=== PATIENT | female | born 1965 | race Caucasian/White ===

== ENCOUNTER 2018-01-14 07:13 | Day surgery (SDC) | payer OTHER, SELFPAY ==
[2018-01-14] VITALS (7 sets, daily range): BP systolic 94–114; BP diastolic 60–73; PULSE 50–69; RESP 14–16; TEMP 36–36.3; O2SAT 97–100; BMI 29.0
[2018-01-14 07:57] LABS: Internal QC Validated? YES +Cl - CLEAR BKGD; Pregnancy, Urine Negative Negative
--- NOTE | 2018-01-14 08:20 | RAD_ITS ---
STUDY: X-RAY - RIGHT FOOT CLINICAL: Female, 52 years old. Status post ORIF TECHNIQUE: 3 view(s) of the foot. COMPARISON: None. FINDINGS: Normal talus, calcaneus, and tarsal bones. Normal visualized subtalar, talonavicular, calcaneocuboid, tarsal and tarsometatarsal articulations. There is a fifth metatarsal fracture with screw. Normal metatarsophalangeal joint of the great toe. Normal tibial and fibular sesamoid bones. Normal interphalangeal joint of the great toe. Normal phalanges of the great toe. Normal second through fifth metatarsophalangeal joints. Normal interphalangeal joints and phalanges of the lesser toes. The soft tissue structures are unremarkable. RAD/Foot min 3 Views IMPRESSION: Status post ORIF of fifth metatarsal fracture. Electronically Signed: Lopez Enriquez MD at 14:04 EST , Service support ,
[2018-01-14] MEDS: Cefazolin 2 GM in 0.9% Normal Saline 100 ML IV (08:42)
[2018-01-14 08:54] LABS: Vitamin D,25 Hydroxy 41.4 ng/mL (29.95-100.01)
[2018-01-14] MEDS: Heparin 10,000 UNITS/10 ML Vial 10000 UNITS (09:00)
--- NOTE | 2018-01-14 09:35 | DCINST_ITS ---
Discharge Diet: Light diet - advance as tolerated Discharge Activity: May Not Drive Weight Bearing Status: No weight bearing - No weightbearing right foot Keep extremity elevated above heart level: Right Leg - Keep right foot elevated for at least 50 minutes of every hour Call your doctor if your incision/area has: Continuous Slow Oozing, Sudden Increased Bleeding, Foul Smelling Discharge Call your doctor if you observe: Fever of 101 or Higher, Coldness, Increased Pain, Shortness of breath, Chest pain, Increased palpitations (irregular heartbeat), Calf discomfort, Uncontrolled pain Cleanse incision/area with: Do not get Incision Wet, Keep Dressing Clean & Dry Allergies/Adverse Reactions: Allergies No Known Allergies Allergy (Verified 01/07/18 15:09) Medications to take at Discharge Fluvoxamine Maleate [Luvox] 50 mg PO QHS 08/24/14 Levothyroxine [Synthroid] 50 mcg PO DAILY 08/24/14 Spironolactone [Aldactone] 50 mg PO DAILY 08/24/14 Ergocalciferol [Vitamin D] 2,000 unit PO DAILY 11/05/17 Metaxalone [Skelaxin] 800 mg PO BID PRN PRN 11/05/17 Omeprazole Magnesium [Prilosec Otc] 20 mg PO DAILY 11/05/17 Oxycodone HCl/Acetaminophen [Percocet 5/325] 1 - 2 tab PO Q4H PRN PRN 3 Days # 30 tab 01/14/18 The following prescriptions were given: Oxycodone HCl/Acetaminophen [Percocet 5/325] 1 - 2 tab PO Q4H PRN PRN 3 Days # 30 tab PRN Reason: Pain Primary Care Physician: Arline Melton [Primary Care Provider] - Please Follow Up With: Aleksandar Pisano DPM When: within 1 week or sooner if needed
[2018-01-14] MEDS: Bupivacaine 0.25% 30 ML Vial (09:37)
--- NOTE | 2018-01-14 09:37 | PCM.OPRPT ---
Report of Operation Date of Procedure: 01/14/18 Pre-Operative Diagnosis: 5th metatarsal fracture, right foot Post-Operative Diagnosis: Same Surgery/Procedure Performed:: Open reduction internal fixation 5th metatarsal fracture with bone marrow aspiration and injection of ignite graft brewery technician: Yes - Dr. Eleazar Back Type of Anesthesia:: Local MAC Specimen's removed: None Estimated Blood Loss (mL): 1mL Description of Procedure: Indications: This is a 52 year old female with right 5th metatarsal Titi's fracture of ~2 months in duration. She is still having pain, and symptoms. Xrays of the site reveal persistent fracture. She has elected to undergo open reduction internal fixation of the fracture with bone marrow aspiration and injection of Ignite graft. The procedure was discussed with her in great detail, reviewed the rationale of the procedure, the possible benefits vs risks, and potential complications. All alternative options were discussed and reviewed. The goals and the expectations were discussed and reviewed. The estimated healing time was reviewed. She expressed understanding and agreement, all of her questions were answered. The consent forms were reviewed with her and she freely signed them. All of her questions were answered. No guarantees were given or implied. Operative Procedure: The patient was brought back into the operating room and was placed on the operating room table in the supine position. She was carefully secured to the operating room table with a safety belt around her waist. A time out was performed and the patient was properly identified and the surgical plan was confirmed. The patient received 2 grams of IV Ancef for antibiotic prophylaxis. The patient received MAC anesthesia, and a local nerve block was completed around the 5th ray on the right foot for pain control using 1% Lidocaine plain and 0.25% Bupivacaine plain. A well padded pneumatic tourniquet was applied around the patient's right ankle. The right foot was scrubbed, prepped, and draped in the usual aseptic fashion. Attention was further directed to the right foot. A Jamshidi needle was placed through the lateral wall of the calcaneus being use to avoid all vital structures to the area. 60mL of bone marrow aspirate was obtained, this was spun down to 4mL of concentrated bone marrow aspirate to be mixed with Ignite graft. The right foot was elevated for 3 minutes and the right ankle pneumatic tourniquet was inflated to 250mmHg. The fracture of the 5th metatarsal was identified on intra operative fluoroscopy. A guidewire was placed from the base of the 5th metatarsal and down the shaft of the 5th metatarsal going across the fracture site. A small linear skin incision was made at the level of the guidewire entry point on the lateral midfoot. Careful blunt dissection was completed down to the base of the 5th metatarsal. The 5th metatarsal was under drilled and using rigid open reduction internal fixation a 4.5mm [facility] partially threaded screw was placed across the fracture site, intramedullary, in standard fashion. There was reduction of the fracture, there was good bone to bone apposition, and good alignment noted. There was excellent bite to the screw and good compression of the fracture ends. This was confirmed using intra operative fluoroscopy. Using a 15 scalpel blade, small skin stab incision was made overlying the lateral aspect of the 5th metatarsal fracture. Careful blunt dissection was completed down to the fracture site. The concentrated bone marrow aspirate was mixed with the Ignite graft and 2mL of the mixture was injected into the fracture using intra operative fluoroscopy guidance. At this time the 5th metatarsal fracture was stable, and rigidly fixated in good position. The proximal incision site (overlying the base of the 5th metatarsal) was flushed with copious amounts of normal saline solution. The skin at the incision sites were reapproximated using 3-0 Monocryl. A dressing was applied which consisted of Betadine soaked Adaptic, 4 x 4 gauze, Kerlix and arun bandage. The pneumatic tourniquet was deflated. There was immediate return of warmth and perfusion to the right foot and to all 5 toes on the right foot. CFT < 2 seconds to all toes. There was normal temperature present. The patient tolerated the procedure well and the anesthesia well with no complications. She was transported from the operating room to the recovery room with vital signs stable and in good condition. Post operative orders were placed, and post operative instructions were reviewed with patient and patient's friend who was with her today. No weightbearing right foot and keep right foot elevated for at least 50 minutes of every hour. A prescription for Percocet was provided to aid with post operative pain control. Post operative right foot xrays were ordered and Grafts/Implants Used: 1 [employer] 4.5mm screw, ignite graft - Complications None
--- NOTE | 2018-01-14 09:43 | OP.PCM_ITS ---
Report of Operation Date of Procedure: 01/14/18 Pre-Operative Diagnosis: 5th metatarsal fracture, right foot Post-Operative Diagnosis: Same Surgery/Procedure Performed:: Open reduction internal fixation 5th metatarsal fracture with bone marrow aspiration and injection of ignite graft [employer]: Yes - Dr. Eleazar Back Type of Anesthesia:: Local MAC Specimen's removed: None Estimated Blood Loss (mL): 1mL Description of Procedure: Indications: This is a 52 year old female with right 5th metatarsal Titi's fracture of ~2 months in duration. She is still having pain, and symptoms. Xrays of the site reveal persistent fracture. She has elected to undergo open reduction internal fixation of the fracture with bone marrow aspiration and injection of Ignite graft. The procedure was discussed with her in great detail , reviewed the rationale of the procedure, the possible benefits vs risks, and potential complications. All alternative options were discussed and reviewed. The goals and the expectations were discussed and reviewed. The estimated healing time was reviewed. She expressed understanding and agreement, all of her questions were answered. The consent forms were reviewed with her and she freely signed them. All of her questions were answered. No guarantees were given or implied. Operative Procedure: The patient was brought back into the operating room and was placed on the operating room table in the supine position. She was carefully secured to the operating room table with a safety belt around her waist. A time out was performed and the patient was properly identified and the surgical plan was confirmed. The patient received 2 grams of IV Ancef for antibiotic prophylaxis. The patient received MAC anesthesia, and a local nerve block was completed around the 5th ray on the right foot for pain control using 1% Lidocaine plain and 0.25% Bupivacaine plain. A well padded pneumatic tourniquet was applied around the patient's right ankle. The right foot was scrubbed, prepped, and draped in the usual aseptic fashion. Attention was further directed to the right foot. A Jamshidi needle was placed through the lateral wall of the calcaneus being use to avoid all vital structures to the area. 60mL of bone marrow aspirate was obtained, this was spun down to 4mL of concentrated bone marrow aspirate to be mixed with Ignite graft. The right foot was elevated for 3 minutes and the right ankle pneumatic tourniquet was inflated to 250mmHg. The fracture of the 5th metatarsal was identified on intra operative fluoroscopy. A guidewire was placed from the base of the 5th metatarsal and down the shaft of the 5th metatarsal going across the fracture site. A small linear skin incision was made at the level of the guidewire entry point on the lateral midfoot. Careful blunt dissection was completed down to the base of the 5th metatarsal. The 5th metatarsal was under drilled and using rigid open reduction internal fixation a 4.5mm [employer] partially threaded screw was placed across the fracture site, intramedullary, in standard fashion. There was reduction of the fracture, there was good bone to bone apposition, and good alignment noted. There was excellent bite to the screw and good compression of the fracture ends. This was confirmed using intra operative fluoroscopy. Using a 15 scalpel blade, small skin stab incision was made overlying the lateral aspect of the 5th metatarsal fracture. Careful blunt dissection was completed down to the fracture site. The concentrated bone marrow aspirate was mixed with the Ignite graft and 2mL of the mixture was injected into the fracture using intra operative fluoroscopy guidance. At this time the 5th metatarsal fracture was stable, and rigidly fixated in good position. The proximal incision site (overlying the base of the 5th metatarsal) was flushed with copious amounts of normal saline solution. The skin at the incision sites were reapproximated using 3-0 Monocryl. A dressing was applied which consisted of Betadine soaked Adaptic, 4 x 4 gauze, Kerlix and arun bandage. The pneumatic tourniquet was deflated. There was immediate return of warmth and perfusion to the right foot and to all 5 toes on the right foot. CFT < 2 seconds to all toes. There was normal temperature present. The patient tolerated the procedure well and the anesthesia well with no complications. She was transported from the operating room to the recovery room with vital signs stable and in good condition. Post operative orders were placed , and post operative instructions were reviewed with patient and patient's friend who was with her today. No weightbearing right foot and keep right foot elevated for at least 50 minutes of every hour. A prescription for Percocet was provided to aid with post operative pain control. Post operative right foot xrays were ordered and Grafts/Implants Used: 1 [employer] 4.5mm screw, ignite graft - Complications None
--- NOTE | 2018-01-14 10:05 | RAD_ITS ---
STUDY: X-RAY - RIGHT FOOT CLINICAL: Female, 52 years old. Status post ORIF TECHNIQUE: 3 view(s) of the foot. COMPARISON: None. FINDINGS: Normal talus, calcaneus, and tarsal bones. Normal visualized subtalar, talonavicular, calcaneocuboid, tarsal and tarsometatarsal articulations. There is a fifth metatarsal fracture with screw. Normal metatarsophalangeal joint of the great toe. Normal tibial and fibular sesamoid bones. Normal interphalangeal joint of the great toe. Normal phalanges of the great toe. Normal second through fifth metatarsophalangeal joints. Normal interphalangeal joints and phalanges of the lesser toes. The soft tissue structures are unremarkable. RAD/Foot min 3 Views IMPRESSION: Status post ORIF of fifth metatarsal fracture. Electronically Signed: Lopez Enriquez MD at 14:04 EST , Service support ,
== END 2018-01-14 13:06 | disposition home or self-care (01) ==
LOC: SDC 07:14 → AC 07:17
PROVIDERS: Anesthesiology; Family Provider Nurse Practitioner; PCP Nurse Practitioner; Visit Provider Podiatrist
PROC: (CPT 28485; principal; 2018-01-14 08:30)
DX: S92.351A Displaced fracture of fifth metatarsal bone, right foot, initial encounter for closed fracture (principal); E55.9 Vitamin D deficiency, unspecified; F32.9 Major depressive disorder, single episode, unspecified; E03.9 Hypothyroidism, unspecified; K21.9 Gastro-esophageal reflux disease without esophagitis; F41.9 Anxiety disorder, unspecified; X58.XXXA Exposure to other specified factors, initial encounter; Y93.9 Activity, unspecified; Y92.9 Unspecified place or not applicable; Y99.9 Unspecified external cause status
CPT/HCPCS: 28485; 38232; 36415; 73630; 76000; 81025; 82306; J3010; J7120; A4216; J2405

== ENCOUNTER → 2018-08-30 13:29 | Outpatient (CLI) | payer OTHER, SELFPAY ==
--- NOTE | 2018-08-30 13:31 | VDLE_ITS ---
Reason For Study: pain RIGHT LEFT GSV is normal. CFV is compressible, spontaneous, phasic, CFV is compressible, spontaneous, phasic, competent, and demonstrates normal competent and demonstrates normal augmentation. augmentation. FV is compressible, spontaneous, phasic, competent and demonstrates normal augmentation. POP V is compressible, spontaneous, phasic, competent and demonstrates normal augmentation. T/P Trunk is compressible. PTV is compressible. RT PerV is compressible. Procedure Exam performed in department. The exam was diagnostic. A preliminary report was called and/or faxed to Arline Melton. Interpretation Summary Deep veins of the right lower extremity are patent and compressible segmentally. There is no evidence of right lower extremity deep vein thrombosis. Valvular competence appears intact within the proximal deep venous system on the right . The right greater saphenous vein appears patent and compressible segmentally. Ordering Physician: Arline Melton Performed By: Patrick Espinoza RVT
== END ==
PROVIDERS: Family Provider Nurse Practitioner; PCP Nurse Practitioner; Referring Provider Nurse Practitioner; Visit Provider Nurse Practitioner
DX: M79.604 Pain in right leg (principal)
CPT/HCPCS: 93971

== ENCOUNTER → 2019-05-30 | Outpatient (CLI) | payer OTHER, SELFPAY ==
[2018-08-27 11:59] VITALS: BMI 29.2
== END | disposition home or self-care (01) ==
LOC: LABSPEC 16:18
PROVIDERS: Visit Provider Obstetrics & Gynecology
DX: Z12.4 Encounter for screening for malignant neoplasm of cervix (principal)

== ENCOUNTER → 2019-10-10 12:26 | Outpatient (CLI) | payer OTHER, SELFPAY ==
--- NOTE | 2019-10-10 12:32 | RAD_ITS ---
HISTORY: RT SHOULDER PAIN EXAMINATION/TECHNIQUE: XR right shoulder 4 views COMPARISON: None FINDINGS: Clothing artifact and right shoulder sling with metallic buckle. No fracture, dislocation, or bony abnormality. The right glenohumeral relationship is normal. The right AC joint appears preserved. No soft tissue calcifications identified. RAD/Shoulder min 2 Views IMPRESSION: Normal exam, right shoulder. at 0202 Reported and signed by: Mike Coreas MD Electronically Signed: Mike Coreas, at 2:01 EST Tel , Service support ,
== END ==
PROVIDERS: PCP Nurse Practitioner; Referring Provider Nurse Practitioner; Visit Provider Nurse Practitioner
DX: M25.511 Pain in right shoulder (principal)
CPT/HCPCS: 73030

== ENCOUNTER → 2019-12-05 10:28 | Outpatient (CLI) | payer OTHER, SELFPAY ==
[2018-08-27 11:59] VITALS: BMI 29.2
--- NOTE | 2019-12-05 10:30 | BI_ITS ---
MAMMOGRAPHY - BILATERAL SCREENING REASON FOR EXAM: Female, 53 years old. Routine annual screening examination. PERTINENT HISTORY: Aunt with breast cancer. TECHNIQUE: Digital bilateral breast demarcus (3D mammographic acquisition) in the CC and MLO projections. 2-D mediolateral oblique (MLO) and craniocaudad (CC) views of both breasts were obtained. CAD: Full Field Digital Mammography with Computer Added Detection was performed. COMPARISON: Comparison is made with prior study dated September 18, 2017 and August 21, 2016 FINDINGS: Breast Composition: The breasts are heterogeneously dense, which may obscure small masses. There are no dominant masses or suspicious calcifications. No other significant abnormalities are identified. There has been no significant change since the prior study. BI/SCREEN MAMM (CAD) W/DEMARCUS BILAT IMPRESSION: Stable bilateral screening mammogram. Yearly follow-up mammogram recommended. (A) ASSESSMENT CATEGORY: BIRADS Category 1: Negative. A letter regarding these results will be sent to the patient by the facility within 30 days. Approximately 10% of breast cancers are not detected by mammography. A normal mammogram should not delay biopsy of a clinically suspicious abnormality. [id number] Electronically Signed: Juan Wolfe, at 11:54 EST , Service support ,
== END ==
PROVIDERS: Family Provider Nurse Practitioner; PCP Nurse Practitioner; Referring Provider Obstetrics & Gynecology; Visit Provider Obstetrics & Gynecology
DX: Z12.31 Encounter for screening mammogram for malignant neoplasm of breast (principal)
CPT/HCPCS: 77063; 77067

== ENCOUNTER → 2020-09-18 10:06 | Outpatient (CLI) | payer OTHER, SELFPAY ==
--- NOTE | 2020-09-18 10:11 | BD_ITS ---
STUDY: DUAL ENERGY X-RAY ABSORPTIOMETRY / DXA REASON FOR EXAM: Female, 54 years old. MOBILE PHLEBOTOMIST -- TAKES LEVOTHYROXIN -- TAKES DIURETIC -- TAKES CALCIUM IRREGULARLY -- DOES MODERATE AMOUNT OF EXERCISE -- FAMILY HX OF OSTEO- MOTHER -- HX OF FOOT FX -- DONA OF 0.5 INCH TECHNIQUE: Bone Mineral Density (BMD) measurements of lumbar spine and bilateral hips were obtained. COMPARISON: None. FINDINGS: Lumbar Spine (L1-L4): g/cm2 (1.028) / T-score (-1.1) / Z-score (-0.4) Findings are suggestive of osteopenia with a low fracture risk. Left Femur Total: g/cm2 (1.112) / T-score (0.8) / Z-score (1.5) Left Femoral Neck: g/cm2 (1.076) / T-score (0.3) / Z-score (1.3) Right Femur Total: g/cm2 (1.044) / T-score (0.3) / Z-score (0.9) Right Femoral Neck: g/cm2 (1.074) / T-score (0.3) / Z-score (1.3) BD/Dexa Bone Density Study IMPRESSION: The patient is considered osteopenic as outlined below according to World Deng Organization (WHO) criteria with a low fracture risk. Reference Information: The T-score is the number of standard deviations above or below the standard which is normal for young adults at their peak bone mineral density. The World Health Organization (WHO) interprets the T-scores as follows: Above -1 Normal bone density Between -1 and -2.5 Osteopenia Equal to / or below -2.5 Osteoporosis As a practical clinical guideline, osteopenia may be graded as follows: Mild -1 through -1.5 Moderate -1.6 through -2.0 Severe -2.1 through -2.4 The Z-score is the number of standard deviations above or below age-matched controls. A Z-score of less than -1.5 would be considered abnormal. References: 1. NIH Osteoporosis and Related Bone Diseases www osteo.org 2. International Society for Clinical Densitometry www iscd.org 3. National Osteoporosis Foundation www nof.org Electronically Signed: Juan Wolfe, at 9:35 EST , Service support ,
== END ==
PROVIDERS: PCP Nurse Practitioner; Referring Provider Nurse Practitioner; Visit Provider Nurse Practitioner
DX: Z78.0 Asymptomatic menopausal state (principal)
CPT/HCPCS: 77080

== ENCOUNTER → 2022-10-06 | Outpatient (CLI) | payer OTHER, SELFPAY ==
[2022-10-06 12:30] LABS: Vitamin D,25 Hydroxy 36.6 ng/mL
[2022-10-06 12:32] LABS: Absolute Lymphocyte Count 1.49 X10^3/uL (0.83-4.51); Absolute Neutrophil Count 3.2 X10^3/uL (2.0-7.7); Basophil# 0.06 X10^3/uL; Basophil% 1.2 % (0-1); Eosinophil# 0.06 X10^3/uL; Eosinophils% 1.2 % (0-5); Hematocrit 44.4 % (37-47); Hemoglobin 14.5 g/dL (12.0-15.0); Lymphocyte # 1.49 X10^3/ul (0.83-4.51); Lymphocyte % 28.6 % (19-41); Mean Corp Hgb Conc 32.7 g/dL (32-36); Mean Corpuscular Hgb 30.1 pg (27.0-32.0); Mean Corpuscular Volume 92.1 fL (81-99); Mean Platelet Vol. 9.6 fl (6.2-12.0); Monocyte% 7.7 % (0-10); NRBC Flagged by Analyzer 0 % (0-5); Neutrophil # 3.19 X10^3/uL (2.7-7.7); Neutrophil % 61.1 % (47-70); Platelet Count 345 K/mm3 (150-450); RBC Distribution Width CV 12.3 % (11.6-14.6); RBC Distribution Width SD 41.2 fl (35.1-43.9); Red Blood Count 4.82 M/mm3 (4.2-5.4); White Blood Count 5.2 K/mm3 (4.4-11.0)
[2022-10-06 12:35] LABS: ALB/GLOB Ratio 0.9 RATIO (0.9-2.4); AST(SGOT) 20 U/L (15-37); Alanine Aminotransfer ALT/SGPT 34 U/L (13-56); Albumin, Serum 3.9 g/dL (3.2-5.0); Alkaline Phosphatase 100 U/L (45-117); Anion Gap 4 (5-15); BUN 17 mg/dL (7-18); BUN/Creat Ratio 20.4 RATIO (10-20); Calcium,Total 9.1 mg/dL (8.5-10.1); Chloride 102 mmol/L (98-107); Cholesterol 228 mg/dL (200); Creatinine, Serum 0.83 mg/dL (0.55-1.02); EST Glomerular Filtration Rate 75 mL/min (>60); Est Glom Filt Rate - Afr Amer 91 mL/min (>60); Globulin 4.3 g/dL (2.2-4.2); Glucose 96 mg/dL (74-106); High Density Lipoprotein 53 mg/dL; Potassium 4.4 mmol/L (3.5-5.1); Protein, Total 8.2 g/dL (6.4-8.2); Sodium Level 138 mmol/L (136-145); Thyroid Stim Hormone (TSH) 2.67 uIU/mL (0.358-3.74); Triglycerides 128 mg/dL; Very Low Density Lipoprotein 26 mg/dL (5-40)
== END | disposition home or self-care (01) ==
LOC: BIMLAB 11:02
PROVIDERS: PCP Internal Medicine; Referring Provider Internal Medicine; Visit Provider Internal Medicine
DX: F41.9 Anxiety disorder, unspecified (principal); F32.A Depression, unspecified; E03.9 Hypothyroidism, unspecified; K21.9 Gastro-esophageal reflux disease without esophagitis; Z13.6 Encounter for screening for cardiovascular disorders; E55.9 Vitamin D deficiency, unspecified
CPT/HCPCS: 36415; 80053; 80061; 82306; 84443; 85025

== ENCOUNTER → 2023-02-12 | Outpatient (CLI) | payer OTHER, SELFPAY ==
--- NOTE | 2023-02-12 10:22 | BI_ITS ---
MAMMOGRAPHY - BILATERAL SCREENING REASON FOR EXAM: Female, 57 years old. Routine annual screening examination. PERTINENT HISTORY: Aunt with breast cancer. TECHNIQUE: Digital bilateral breast demarcus (3D mammographic acquisition) in the CC and MLO projections. 2-D mediolateral oblique (MLO) and craniocaudad (CC) views of both breasts were obtained. CAD: Full Field Digital Mammography with Computer Added Detection was performed. COMPARISON: Comparison is made with prior study December 05, 2019 and September 18, 2017. FINDINGS: Breast Composition: The breasts are heterogeneously dense, which may obscure small masses. There are no dominant masses or suspicious calcifications. No other significant abnormalities are identified. There has been no significant change since the prior study. BI/SCRN MAMM (CAD)W/DEMARCUS BILAT IMPRESSION: Stable bilateral screening mammogram. Yearly follow-up mammogram recommended. (A) ASSESSMENT CATEGORY: BIRADS Category 1: Negative. A letter regarding these results will be sent to the patient by the facility within 30 days. Approximately 10% of breast cancers are not detected by mammography. A normal mammogram should not delay biopsy of a clinically suspicious abnormality. [id number] Electronically Signed: Juan Wolfe MD at 11:53 EDT ,
== END | disposition home or self-care (01) ==
LOC: OPBI 10:22
PROVIDERS: PCP Internal Medicine; Visit Provider Internal Medicine
DX: Z12.31 Encounter for screening mammogram for malignant neoplasm of breast (principal)
CPT/HCPCS: 77063; 77067

== ENCOUNTER → 2023-08-30 | Outpatient (CLI) | payer OTHER, SELFPAY ==
[2023-09-01 18:08] LABS: HPV APTIMA, High Risk Negative (Negative)
[2023-09-01 19:43] LABS: HPV Reflexed? YES, CHARGE PATIENT
== END | disposition home or self-care (01) ==
LOC: LABSPEC 10:58
PROVIDERS: PCP Internal Medicine; Visit Provider Internal Medicine
DX: Z12.4 Encounter for screening for malignant neoplasm of cervix (principal)
CPT/HCPCS: 87624; 88175; G0145

== ENCOUNTER → 2024-07-07 | Outpatient (CLI) | payer OTHER, SELFPAY ==
[2024-07-07 10:16] LABS: Hematocrit 43.6 % (37-47); Hemoglobin 14.6 g/dL (12.0-15.0); Mean Corp Hgb Conc 33.5 g/dL (32-36); Mean Corpuscular Hgb 30.8 pg (27.0-32.0); Mean Platelet Vol. 9.2 fl (6.2-12.0); Platelet Count 330 K/mm3 (150-450); RBC Distribution Width CV 11.8 % (11.6-14.6); RBC Distribution Width SD 39.7 fl (35.1-43.9); Red Blood Count 4.74 M/mm3 (4.2-5.4); White Blood Count 6.4 K/mm3 (4.4-11.0)
[2024-07-07 10:47] LABS: Anion Gap 5 (5-15); BUN 19 mg/dL (7-18); BUN/Creat Ratio 22.2 RATIO (10-20); Calcium,Total 9.3 mg/dL (8.5-10.1); Chloride 105 mmol/L (98-107); Creatinine, Serum 0.85 mg/dL (0.55-1.02); EST Glomerular Filtration Rate 73 mL/min (>60); Est Glom Filt Rate - Afr Amer 88 mL/min (>60); Glucose 93 mg/dL (74-106); Potassium 4.7 mmol/L (3.5-5.1); Sodium Level 140 mmol/L (136-145)
== END | disposition home or self-care (01) ==
PROVIDERS: PCP Internal Medicine; Referring Provider Physician Assistant; Visit Provider Physician Assistant
DX: Z01.818 Encounter for other preprocedural examination (principal); Z01.810 Encounter for preprocedural cardiovascular examination
CPT/HCPCS: 36415; 80048; 85027; 93005

== ENCOUNTER → 2024-10-26 | Outpatient (CLI) | payer OTHER, SELFPAY ==
[2024-10-26 12:38] LABS: Vitamin D,25 Hydroxy 22.1 ng/mL
[2024-10-26 12:40] LABS: AST(SGOT) 13 U/L (15-37); Alanine Aminotransfer ALT/SGPT 31 U/L (13-56); Albumin, Serum 3.8 g/dL (3.2-5.0); Alkaline Phosphatase 98 U/L (45-117); Anion Gap 6 (5-15); BUN 22 mg/dL (7-18); BUN/Creat Ratio 21.8 RATIO (10-20); Calcium,Total 9.7 mg/dL (8.5-10.1); Chloride 104 mmol/L (98-107); Cholesterol 201 mg/dL (200); Creatinine, Serum 1.01 mg/dL (0.55-1.02); EST Glomerular Filtration Rate 60 mL/min (>60); Est Glom Filt Rate - Afr Amer 72 mL/min (>60); Globulin 3.9 g/dL (2.2-4.2); Glucose 88 mg/dL (74-106); High Density Lipoprotein 45 mg/dL; Potassium 4.7 mmol/L (3.5-5.1); Protein, Total 7.7 g/dL (6.4-8.2); Sodium Level 138 mmol/L (136-145); Triglycerides 143 mg/dL; Very Low Density Lipoprotein 29 mg/dL (5-40)
== END | disposition home or self-care (01) ==
LOC: BIMLAB 08:06
PROVIDERS: PCP Internal Medicine; Referring Provider Internal Medicine; Visit Provider Internal Medicine
DX: Z00.00 Encounter for general adult medical examination without abnormal findings (principal); E03.9 Hypothyroidism, unspecified; E78.2 Mixed hyperlipidemia; E55.9 Vitamin D deficiency, unspecified
CPT/HCPCS: 36415; 80053; 80061; 82306; 84443

== ENCOUNTER → 2024-11-10 | Outpatient (CLI) | payer OTHER, SELFPAY ==
--- NOTE | 2024-11-10 08:18 | BI_ITS ---
MAMMOGRAPHY - BILATERAL SCREENING 3-D TOMOSYNTHESIS REASON FOR EXAM: Female, 58 years old. screening PERTINENT HISTORY: No significant family history. TECHNIQUE: 2-D mammograms and 3-D Tomosynthesis of the breast (s) were performed. CAD was performed. COMPARISON: 02/12/2023 FINDINGS: The breast composition is heterogeneously dense that can obscure small breast masses. Scattered benign calcifications are seen. No dense spiculated masses or suspicious microcalcifications are identified. No architectural distortion is identified. There is no skin thickening or retraction. There has been no significant change since the prior study. BI/SCRN MAMM (CAD)W/DEMARCUS BILAT IMPRESSION: No mammographic signs of malignancy. Routine yearly mammograms recommended. ASSESSMENT CATEGORY: BIRADS Category 1: Negative. A letter regarding these results will be sent to the patient by the facility within 30 days. FOLLOW UP RECOMMENDATION: Yearly follow up mammogram recommended. (A) Approximately 10% of breast cancers are not detected by mammography. A normal mammogram should not delay biopsy of a clinically suspicious abnormality. Electronically Signed: Dion Paris MD at 19:36 EST ,
== END | disposition home or self-care (01) ==
LOC: OPBI 08:17
PROVIDERS: PCP Internal Medicine; Referring Provider Internal Medicine; Visit Provider Internal Medicine
DX: Z12.31 Encounter for screening mammogram for malignant neoplasm of breast (principal)
CPT/HCPCS: 77063; 77067